=== PATIENT | male | born 1965 | race African-American/Black ===

== ENCOUNTER 2024-07-13 09:46 | Emergency (ER) | payer SELFPAY ==
[~2024-07-13] VITALS: Ht 172.7 cm; Wt 65.0 kg
[2024-07-13 09:54] VITALS: TEMP 97.7; O2SAT 99
[2024-07-13 11:09] VITALS: BP 130/90; PULSE 74; RESP 16
[2024-07-13] MEDS: KETOROLAC 15MG/ML VIAL IM ONE (11:09)
[2024-07-13] MEDS ORDERED: ACET-2708 MT (11:22)
== END 2024-07-13 11:50 | disposition home or self-care (01) ==
LOC: ER 09:51
DX: M79.602 Pain in left arm (principal)
CPT/HCPCS: 99284; 73090; 73130; 96372; J1885

== ENCOUNTER 2024-09-09 22:42 | Emergency (ER) | payer OTHER ==
[~2024-09-09] VITALS: Ht 177.8 cm; Wt 72.8 kg
[~2024-09-09 22:42] MED LIST: ACET-2708 MT
[2024-09-09 23:14] VITALS: O2SAT 100
[2024-09-09 23:15] VITALS: O2SAT 98
[2024-09-10 01:17] LABS: BASOPHILS % 0.4 % (0.0-2.0); EOSINOPHILS % 3.3 % (0.0-5.0); HEMATOCRIT. 41.6 % (42.0-52.0); HEMOGLOBIN. 14.3 g/dL (14.0-18.0); MEAN CORPUSCULAR HGB CONC 34.4 g/dL (31.0-37.0); MEAN CORPUSCULAR VOLUME 93.1 fL (80.0-94.0); MEAN PLATELET VOLUME 8.8 fl (7.4-10.4); MONOCYTES % 8.5 % (2.0-8.0); NEUTROPHILS % 59.8 % (40.0-76.0); PLATELET 89 x1000/uL (130-400); RED BLOOD CELL COUNT 4.46 mill/uL (4.7-6.1); RED CELL DISTRIBUTION WIDTH 12.7 % (11.6-14.6); WHITE BLOOD COUNT 4.3 x1000/uL (4.5-11.0)
[2024-09-10 01:18] VITALS: BP 134/90; PULSE 87; RESP 16
[2024-09-10] MEDS: IBUPROFEN 600MG TABLET PO ONE (01:18)
[2024-09-10 01:23] LABS: CHLORIDE 105 mEq/L (98-107); SODIUM 140 mEq/L (136-145)
[2024-09-10 01:24] LABS: CALCIUM 9.2 mg/dL (8.7-10.4); CARBON DIOXIDE 31 mEq/L (21-32)
[2024-09-10 01:29] LABS: CREATININE 1.2 mg/dL (0.6-1.3); GLUCOSE 104 mg/dL (70-105); UREA NITROGEN BLOOD 14 mg/dL (9-23)
[2024-09-10 01:40] LABS: TROPONIN I HIGH SENSITIVITY < 4 ng/L (3.0-53)
== END 2024-09-10 03:24 | disposition home or self-care (01) ==
LOC: ER 22:42
DX: R51.9 Headache, unspecified (principal); I10 Essential (primary) hypertension
CPT/HCPCS: 36415; 71045; 80048; 84484; 85025; 93005; 99285